=== PATIENT | male | born 1990 | race African-American/Black ===

== ENCOUNTER 2018-06-16 00:46 | Emergency (ER) | payer OTHER ==
[2018-06-16] MEDS: NAPROXEN 250 MG TAB PO (02:55)
[2018-06-16] MEDS: METHOCARBAMOL 750 MG TAB PO (02:55)
[2018-06-16] MEDS: OXYCODONE/APAP 5MG/325MG(BULK FOR ED) 1 TABLET PO (02:55)
== END 2018-06-16 02:57 | disposition home or self-care (01) ==
LOC: M ED 00:46
DX: M54.5 Low back pain (principal)
CPT/HCPCS: 99282

== ENCOUNTER 2020-02-09 09:14 | Day surgery (SDC) | payer OTHER ==
[~2020-02-09] VITALS: Ht 170.2 cm; Wt 78.9 kg
[~2020-02-09 09:14] MED LIST: CLAR10CA3 PO; FLON1SPR NARES; MULTCAP PO; NAPR-837 PO; NS 1,000 ML IV ONE; PERC5TAB12 PO; ROBA500T PO
[2020-02-09] MEDS ORDERED: LIDOCAINE 2% 100MG/5ML SDV (FOR ANES.) As Ordered ONE (10:24)
[2020-02-09] MEDS ORDERED: propofoL 200 MG/20 ML VIAL As Ordered ONE ×2 (10:25→11:29)
[2020-02-09] MEDS ORDERED: fentaNYL 100 MCG/2 ML INJECTION (J3010) As Ordered ONE (11:18)
--- NOTE | 2020-02-09 11:33 | ROOR ---
Patient Name: Ector Coronel Procedure Date: 02/09/2020 11:19 AM Date of : 1990 Age: 29 Room: [facility] Gender: Male Note Status: Finalized Procedure: Upper Endoscopy + Biopsies Indications: Functional Dyspepsia, Heartburn, Abdominal bloating Providers: Ted Diamond MD Referring MD: GUNJAN HOLLINS MD Requesting Provider: Medicines: Monitored Anesthesia Care Complications: No immediate complications. Procedure: Pre-Anesthesia Assessment: - The heart rate, respiratory rate, oxygen saturations, blood pressure, adequacy of pulmonary ventilation, and response to care were monitored throughout the procedure. The Endoscope was introduced through the mouth, and advanced to the second part of duodenum. The upper GI endoscopy was accomplished without difficulty. The patient tolerated the procedure well. Findings: The Z-line was regular and was found 42 cm from the incisors. No other significant abnormalities were identified in a careful examination of the stomach. Biopsies were taken with a cold forceps in the gastric antrum for Helicobacter pylori testing. The exam of the duodenum was otherwise normal. Impression: - Z-line regular, 42 cm from the incisors. - Biopsies were taken with a cold forceps for Helicobacter pylori testing. - The examination was otherwise normal. Recommendation: - Patient has a contact number available for emergencies. The signs and symptoms of potential delayed complications were discussed with the patient. Return to normal activities tomorrow. Written discharge instructions were provided to the patient. - Resume previous diet. - Discharge patient to home. - Follow an antireflux regimen. - Continue present medications. - Await pathology results. - Telephone GI clinic for pathology results in 1 week. - Return to referring physician. - The findings and recommendations were discussed with the patient. Ted Diamond MD Ted Diamond MD 02/09/2020 11:33:03 AM Electronically signed by Ted Diamond MD Number of Addenda: 0 Note Initiated On: 02/09/2020 11:19 AM Estimated Blood Loss: Estimated blood loss: none.
[2020-02-09 12:09] VITALS: BP 109/62
== END 2020-02-09 12:13 | disposition home or self-care (01) ==
LOC: M OPP 09:14
PROVIDERS: ATTEND Internal Medicine Gastroenterology
DX: K30 Functional dyspepsia (principal); R12 Heartburn; R14.0 Abdominal distension (gaseous)
CPT/HCPCS: 88305; J3010